=== PATIENT | female | born 1960 | race African-American/Black ===

== ENCOUNTER 2024-05-23 08:59 | Outpatient (CLI) | payer OTHER | END 2024-05-23 09:00 | disposition home or self-care (01) | LOC: CT 08:59 | PROVIDERS: ATTEND Urology | DX: N13.30 Unspecified hydronephrosis (principal); R35.0 Frequency of micturition; N28.1 Cyst of kidney, acquired | CPT/HCPCS: 74178 ==

== ENCOUNTER 2024-06-21 12:42 | Outpatient (CLI) | payer OTHER ==
[2024-06-21 14:11] LABS: #Basophils 0.03 10x3/uL (0.0-0.2); %Basophils 0.4 % (0.0-1.0); %Lymphocytes 23.4 % (21.0-51.0); %Monocytes 8.3 % (0.0-10.0); %Neutrophils 66.7 % (42.0-75.0); Hematocrit 37.8 % (36.0-47.0); Mean Corpuscular HGB CONC 31.7 g/dL (32.0-36.0); Mean Corpuscular Hemoglobin 27.7 pg (27.0-31.0); Mean Corpuscular Volume 87.3 fL (78.0-98.0); Mean Platelet Volume 10.3 fL (7.4-10.4); Platelet Count 233 10x3/uL (130-400); RBC Distribution Width 14.9 % (11.5-14.5); Red Blood Cell (RBC) Count 4.33 mill/uL (4.20-5.40)
[2024-06-21 14:25] LABS: Anion Gap 9 mmol/L (10-20); BUN (Urea Nitrogen) 11 mg/dL (9.8-20.1); Calc. Creatinine Clearance 0 mL/min (70-130); Calcium 9.3 mg/dL (7.8-10.44); Carbon Dioxide 25 mmol/L (23-31); Chloride 106 mmol/L (98-107); Estimated GFR 99; Glucose 92 mg/dL (80-115); Potassium 4.2 mmol/L (3.5-5.1); Prothrombin Time 13.1 sec (12.0-14.7); Sodium 136 mmol/L (136-145)
[2024-06-21 14:26] LABS: PTT 32.1 sec (22.9-36.1)
[2024-06-21 14:33] LABS: Bacteria/HPF None Seen HPF (None Seen); Bilirubin Negative (Negative); Blood, Urine Negative (Negative); Clarity Clear (Clear); Glucose, Urine (Dipstick) Normal (Negative); Ketone, Urine Negative (Negative); Leukocyte Negative Leu/uL (Negative); Nitrite Negative (Negative); Protein, Urine (Dipstick) Negative (Neg-Trace); RBC/HPF 0-3 HPF (0-3); Specific Gravity, Urine 1.015 (1.002-1.036); Squamous Epithelial 0-3 HPF (0-3); Urobilinogen Normal mg/dL (Less than 2); WBC/HPF 0-3 HPF (0-3); pH, Urine 6.5 (5.0-9.0)
== END 2024-06-21 12:43 | disposition home or self-care (01) ==
LOC: LABBT 12:42
PROVIDERS: ATTEND Urology
DX: Z01.818 Encounter for other preprocedural examination (principal); N13.30 Unspecified hydronephrosis; R35.0 Frequency of micturition; M54.31 Sciatica, right side; Z72.0 Tobacco use
CPT/HCPCS: 80048; 81001; 85025; 85610; 85730; 87086; 93005; 93010

== ENCOUNTER 2024-07-03 06:39 | Day surgery (SDC) | payer MEDICARE, OTHER ==
[2024-06-21 12:58] VITALS: BMI 30.1
[2024-07-03] MEDS ORDERED: Rocuronium Bromide 10 MG/ML (10ML VIAL) ONE (08:36)
[2024-07-03] MEDS ORDERED: Lidocaine 2% PF 5 ML VIAL ONE (08:36)
[2024-07-03] MEDS ORDERED: PROPOFOL 20 ML ONE (08:36)
[2024-07-03] MEDS ORDERED: LevoFLOXacin D5W 500 mg (100 mL) BAG ONE (08:56)
[2024-07-03] MEDS ORDERED: Iopamidol 15 ML ONE (09:27)
[2024-07-03] MEDS ORDERED: fentaNYL PF 100 MCG/2 ML SYRINGE ONE (09:38)
[2024-07-03] MEDS ORDERED: Dexamethasone 4 mg/ml Vial ONE (10:03)
[2024-07-03] MEDS ORDERED: Ondansetron PF 4 MG/2 ML Vial ONE (10:03)
== END 2024-07-03 13:18 | disposition home or self-care (01) ==
LOC: SDC 06:39
PROVIDERS: ATTEND Urology
PROC: BT1DZZZ Fluoroscopy of Right Kidney, Ureter and Bladder (ICD-10-PCS; principal; 2024-07-03)
DX: N13.30 Unspecified hydronephrosis (principal); I10 Essential (primary) hypertension; M54.31 Sciatica, right side; F17.200 Nicotine dependence, unspecified, uncomplicated; Z87.59 Personal history of other complications of pregnancy, childbirth and the puerperium; Z90.710 Acquired absence of both cervix and uterus; Z90.49 Acquired absence of other specified parts of digestive tract; Z91.041 Radiographic dye allergy status; Z79.51 Long term (current) use of inhaled steroids; Z79.899 Other long term (current) drug therapy
CPT/HCPCS: 52005; 74420; J1100; J1956; J2405; J2704; Q9967